=== PATIENT | male | born 1995 | race Caucasian/White ===

== ENCOUNTER 2016-09-21 23:53 | Emergency (ER) | payer OTHER ==
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
[2016-09-22] MEDS ORDERED: OXYCODONE/APAP 5/325MG COMBO TABLET PO ONE (00:22)
[2016-09-22] MEDS ORDERED: OXYCODONE/APAP 5/325MG COMBO TABLET ONE (00:26)
[2016-09-22 00:57] VITALS: BP 100/55; PULSE 80; TEMP 97.9; BMI 17.7
--- NOTE | 2016-09-22 02:37 | PDOC ---
History of Present Illness - General Chief Complaint: Bone Injury Stated Complaint: FOOT PAIN/WORKERS COMP Time Seen by Provider: 09/22/16 00:10 Past History - Past Medical History Allergies/Adverse Reactions: Allergies Allergy/AdvReac Type Severity Reaction Status Date / Time No Known Allergies Allergy Verified 09/22/16 00:21 Home Medications: Ambulatory Orders Ibuprofen [Motrin] 600 mg PO TID #30 tablet 09/22/16 Oxycodone HCl/Acetaminophen [Percocet 5-325 mg Tablet] 1 - 2 tab PO Q6H #20 tablet MDD 4 09/22/16 - Immunization History Immunization Up to Date: Yes - Psycho/Social/Smoking Cessation Hx Anxiety: No Suicidal Ideation: No Smoking Status: No Smoking History: Current every day smoker Number of Cigarettes Smoked Daily: 0 Information on smoking cessation initiated: No *Physical Exam - Vital Signs Last Vital Signs Temp Pulse Resp BP Pulse Ox 97.9 F 80 22 100/55 99 09/22/16 00:22 09/22/16 00:22 09/22/16 00:22 09/22/16 00:22 09/22/16 00:22 ED Treatment Course - Medications Given in the ED: ED Medications Discontinued Medications Generic Name Dose Route Start Last Admin Trade Name Freq PRN Reason Stop Dose Admin Oxycodone/Acetaminophen 2 combo 09/22/16 00:22 09/22/16 00:29 Percocet 5/325 - PO 09/22/16 00:23 2 combo ONCE ONE Administration *DC/Admit/Observation/Transfer Diagnosis at time of Disposition: Foot sprain Qualifiers: Encounter type: initial encounter Laterality: left Qualified Code(s): S93.602A - Unspecified sprain of left foot, initial encounter - Discharge Dispostion Disposition: HOME Condition at time of disposition: Stable Admit: No - Prescriptions Prescriptions: Ibuprofen [Motrin] 600 mg PO TID #30 tablet Oxycodone HCl/Acetaminophen [Percocet 5-325 mg Tablet] 1 - 2 tab PO Q6H #20 tablet MDD 4 - Patient Instructions Printed Discharge Instructions: How to Use Crutches, DI for Foot Sprain
== END 2016-09-22 02:57 | disposition home or self-care (01) ==
LOC: JER 23:53
DX: S93.602A Unspecified sprain of left foot, initial encounter (principal); V89.2XXA Person injured in unspecified motor-vehicle accident, traffic, initial encounter; Y93.9 Activity, unspecified; Y92.9 Unspecified place or not applicable; Y99.0 Civilian activity done for income or pay; F17.210 Nicotine dependence, cigarettes, uncomplicated
CPT/HCPCS: 73610-TC-RT; 73630-TC-RT; 99284-25